=== PATIENT | female | born 1995 | race Caucasian/White ===

== ENCOUNTER → 2017-10-05 | Outpatient (CLI) | payer OTHER ==
[~2017-10-05] MED LIST: ACEDIPPM; ALBU90OI INH; ALBU90OI6; ALPR.25 PO; ALPR.5 PO; AZIT250 PO; Amoxicillin500 MG PO; CEPH500 PO; CODACE30 PO; CYAN1000 PO; CYAN500; CYCL10 PO; Crutch1 EACH MISC; ESCI10; HYDACE5 PO; HYDACE5325 PO; HYDR1TAB94 PO; LORA10ER; MELATONIN; MULVITMINE PO; NEOPOLHCSU AS; Norco 5-325 Ta1 EACH PO; OXYACE5T PO; POTCHL20ER PO; PRED20 PO; PRENZ; PROM25; PYRI100; PYRI100 PO; RXONDA4ODT MM; SERT50 PO; Seroquel50 MG PO; VENL75 PO
[2017-10-06 08:36] LABS: Candida species (DNA Probe) Negative (NEGATIVE); G. vaginalis (DNA Probe) Positive (NEGATIVE); T. vaginalis (DNA Probe) Negative (NEGATIVE)
== END ==
LOC: LAB SHORT 17:45 → LAB 17:45
PROVIDERS: Registered Nurse
DX: Z12.4 Encounter for screening for malignant neoplasm of cervix (principal); N89.8 Other specified noninflammatory disorders of vagina
CPT/HCPCS: 87480; 87510; 87660; G0123